=== PATIENT | female | born 1960 | race Caucasian/White ===

== ENCOUNTER → 2021-05-08 | Outpatient (CLI) | payer OTHER ==
[~2021-05-08] MED LIST: ACID CONTROL150 MG PO; ALENDRONATE SOD70 MG PO; ASPIR 8181 MG PO; BENADRYL 25MG C25 MG PO; BYDUREON2 MG SQ; DITROPAN 5 MG TA5 MG PO; DOXEPIN HCL25 MG PO; DULOXETINE HCL30 MG PO; INDERAL TAB 1010 MG PO; INVOKAMET 150-1 EACH PO; LASIX20 MG PO; LEVAQUIN500 MG PO; LISINOPRIL10 MG PO; NEURONTIN 300300 MG PO; PHENERGAN 25 MG25 M1 PO; SUMATRIPTAN SU100 MG PO; TRESIBA SQ; VITAMIN B-650 MG PO; VITAMIN D50000 UNIT PO; [UNRECOGNIZED DRUG - CODE] SQ
[2021-05-08 10:54] LABS: HEMOGLOBIN 13.1 gm/dl (12.3-15.3); RED BLOOD COUNT 4.13 M/UL (4.00-5.10); WHITE BLOOD COUNT 2.2 K/UL (4.5-11.0)
[2021-05-09 09:13] LABS: VITAMIN D, 25-HYDROXY 22.7 ng/mL (30.0-100.0)
[2021-05-09 11:13] LABS: RHEUMATOID ARTHRITIS FACTOR 49.7 IU/mL (0.0-13.9)
[2021-05-09 15:14] LABS: RNP ANTIBODIES 0.4 AI (0.0-0.9); SJOGREN'S ANTI-SS-A <0.2 AI (0.0-0.9); SJOGREN'S ANTI-SS-B <0.2 AI (0.0-0.9); SMITH ANTIBODIES <0.2 AI (0.0-0.9)
== END ==
LOC: LAB 09:44
PROVIDERS: Internal Medicine
DX: E55.9 Vitamin D deficiency, unspecified (principal); M81.0 Age-related osteoporosis without current pathological fracture; R53.83 Other fatigue; M79.10 Myalgia, unspecified site; M25.50 Pain in unspecified joint; N18.9 Chronic kidney disease, unspecified
CPT/HCPCS: 36415; 80053; 82550; 82728; 83520; 83970; 84100; 84439; 84443; 85025; 86200; 86235; 86431